=== PATIENT | male | born 1980 | race Hispanic/Latino ===

== ENCOUNTER 2022-08-18 18:22 | Emergency (ER) | payer OTHER ==
[~2022-08-18] VITALS: Ht 177.8 cm; Wt 84.4 kg
[~2022-08-18 18:22] MED LIST: BENZTROPINE ME0.5 MG PO; CLONIDINE HCL0.1 MG PO; REMERON30 MG PO; RISPERDAL1 MG PO
[2022-08-18] MEDS ORDERED: AMOX TR-K CLV1 EAC1 PO ×2 (18:33→22:16)
[2022-08-18] MEDS ORDERED: ACETAMINOPHEN500 M1 PO (18:33)
[2022-08-18] MEDS ORDERED: NAPROSYN500 MG PO (18:34)
[2022-08-18] MEDS ORDERED: ANBESOL12 ML MM (18:34)
[2022-08-18 22:40] VITALS: BP 114/72
== END 2022-08-18 22:41 | disposition home or self-care (01) ==
LOC: ED 18:22
DX: J03.90 Acute tonsillitis, unspecified (principal); F17.200 Nicotine dependence, unspecified, uncomplicated; Z79.899 Other long term (current) drug therapy
CPT/HCPCS: 36415; 70491; 80053; 85025; 87880; J0295; J1100; Q9967